=== PATIENT | female | born 1950 | race Hispanic/Latino ===

== ENCOUNTER 2017-07-23 16:39 | Inpatient (IN) | payer MEDICARE ==
[~2017-07-23] VITALS: Ht 160 cm; Wt 71.7 kg
[2017-07-23 17:02] LABS: BASOPHILS % (AUTO) 0.2 % (0.0-5.0); EOSINOPHILS % (AUTO) 0.1 % (0.0-8.0); HEMATOCRIT 32.4 % (36-48); LYMPHOCYTES % (AUTO) 12.8 % (21.0-51.0); MEAN CORPUSCULAR HEMOGLOBIN 31.6 pg (27.0-33.0); MEAN CORPUSCULAR HGB CONC 34.6 g/dL (32.0-36.0); MEAN CORPUSCULAR VOLUME 91.3 fL (79-99); MONOCYTES % (AUTO) 2.2 % (3.0-13.0); NEUTROPHILS % (AUTO) 84.7 % (40.0-77.0); PLATELET COUNT (AUTO) 123 K/uL (130-400); RED BLOOD CELL COUNT(AUTO) 3.56 MIL/uL (4.00-5.50); RED CELL DISTRIBUTION WIDTH 14.6 % (11.0-15.5); WHITE BLOOD COUNT (AUTO) 9.1 K/uL (4.8-10.8)
[2017-07-23 17:10] LABS: CREATININE 2.4 mg/dL (0.5-1.5); POTASSIUM 4.5 mmol/L (3.5-5.1)
[2017-07-23 17:11] LABS: APPEARANCE,URINE Turbid (CLEAR); BILIRUBIN,URINE Moderate (NEGATIVE); COLOR,URINE Dark Yellow (YELLOW); GLUCOSE, URINE (UA) Negative (NEGATIVE); KETONES,URINE Trace mg/dL (NEGATIVE); LEUKOCYTE ESTERASE ,URINE Small (NEGATIVE); NITRATE,URINE Negative (NEGATIVE); OCCULT BLOOD,URINE Negative (NEGATIVE); PROTEIN,URINE POS 1+ (NEGATIVE)
[2017-07-23 17:15] LABS: ALBUMIN 2.2 g/dL (3.5-5.0); BILIRUBIN,TOTAL 1.6 mg/dL (0.2-1.0); TOTAL PROTEIN, SERUM 5.7 g/dL (6.0-8.3)
[2017-07-23 17:18] LABS: BACTERIA,URINE Many /HPF (None Seen); RBC,URINE None Seen /HPF (0-1)
[2017-07-23 17:19] LABS: AMORPHOUS SEDIMENT,UR Moderate /LPF (None Seen); FINE GRANULAR CASTS,URINE 0-2 /LPF (None Seen); RENAL EPITHELIAL CELLS,URINE Few /HPF (None Seen); TRANSITIONAL EPI CELLS,URINE Few /HPF (None Seen)
[2017-07-23] MEDS ORDERED: SODIUM CHLORIDE 0.9% 1000ML 1,000 ML IV ONE ×2 (17:36→18:39)
[2017-07-23] MEDS ORDERED: MORPHINE SULFATE 4 MG/1ML SYG ONE (19:38)
[2017-07-23 23:25] VITALS: BP 94/44
[2017-07-24] MEDS ORDERED: ACETAMINOPHEN 325 MG TAB PO PRN (00:15)
[2017-07-24] MEDS ORDERED: ACETAMINOPHEN 325 MG TAB ONE (00:20)
[2017-07-24 00:24] VITALS: BP 107/53
[2017-07-24] MEDS: SODIUM CHLORIDE 0.9% 1000ML 1,000 ML IV SCH ×2 (00:30→10:30)
[2017-07-24] MEDS ORDERED: ONDANSETRON HCL MDV 20ML 2 MG/ML VIAL IVP PRN (01:15)
[2017-07-24 04:32] VITALS: BP 92/52
[2017-07-24 05:00] LABS: HEMATOCRIT 29.4 % (36-48); MEAN CORPUSCULAR HEMOGLOBIN 31.8 pg (27.0-33.0); PLATELET COUNT (AUTO) 109 K/uL (130-400); RED BLOOD CELL COUNT(AUTO) 3.23 MIL/uL (4.00-5.50); RED CELL DISTRIBUTION WIDTH 15.1 % (11.0-15.5); WHITE BLOOD COUNT (AUTO) 11.1 K/uL (4.8-10.8)
[2017-07-24 05:12] LABS: ALBUMIN 1.7 g/dL (3.5-5.0); BILIRUBIN,TOTAL 1.8 mg/dL (0.2-1.0); CREATININE 2.5 mg/dL (0.5-1.5); POTASSIUM 3.6 mmol/L (3.5-5.1); TOTAL PROTEIN, SERUM 4.6 g/dL (6.0-8.3)
[2017-07-24 05:18] LABS: B-TYPE NATRIURETIC PEPTIDE 217 pg/mL (0-100)
[2017-07-24] MEDS: CEFTRIAXONE SODIUM 1 GM IV SCH ×2 (05:41→08:46)
[2017-07-24 08:00] VITALS: BP 91/46
[2017-07-24] MEDS: ENOXAPARIN SODIUM 40 MG/0.4 ML SYRINGE SQ SCH ×2 (08:36→17:19)
[2017-07-24] MEDS: PANTOPRAZOLE SODIUM 40 MG TABLET.DR PO SCH (08:45)
[2017-07-24 09:59] LABS: INR 1.16 (0.85-1.15); PARTIAL THROMBOPLASTIN TIME 38.3 SEC (26.3-35.5); PROTHROMBIN TIME 12.1 SEC (9.6-11.6)
[2017-07-24 11:00] VITALS: BP 90/40
[2017-07-24] MEDS: ACETAMINOPHEN 325 MG TAB PO PRN (11:07)
[2017-07-24] MEDS: FUROSEMIDE 10 MG/ML 4ML VIAL IV SCH (13:34)
[2017-07-24 13:47] LABS: ABG BASE EXCESS -6.3 mmol/L (-2.0-3.0); ABG OXYGEN SATURATION 95.2 % (95.0-99.0); ABG PCO2 33 mmHg (32-45)
[2017-07-24 14:53] LABS: PROTEIN,URINE RANDOM 132.8 mg/dL (0-11.9)
[2017-07-24 16:00] VITALS: BP 92/46
[2017-07-24] MEDS: HYDROCODONE/ACETAMINOPHEN 5/325 MG TAB PO PRN ×2 (17:15→23:48)
[2017-07-24 20:00] VITALS: BP 90/45
[2017-07-25] VITALS (7 sets, daily range): BP systolic 85–104; BP diastolic 41–50
[2017-07-25] MEDS ORDERED: HALOPERIDOL LACTATE 5 MG/ML VIAL ONE (01:57)
[2017-07-25] MEDS ORDERED: LORAZEPAM 0.5 MG TABLET PO PRN (02:45)
[2017-07-25] MEDS: FUROSEMIDE 10 MG/ML 4ML VIAL IV SCH ×2 (03:35→08:41)
[2017-07-25] MEDS ORDERED: LORAZEPAM 0.5 MG TABLET ONE (04:30)
[2017-07-25 04:33] LABS: ABG BASE EXCESS -7.3 mmol/L (-2.0-3.0); ABG HCO3 15.1 mmol/L (21.0-28.0); ABG PCO2 24 mmHg (32-45)
[2017-07-25 04:35] LABS: ABG BASE EXCESS -7.1 mmol/L (-2.0-3.0); ABG HCO3 15.6 mmol/L (21.0-28.0); ABG PCO2 25 mmHg (32-45)
[2017-07-25 05:52] LABS: HEMATOCRIT 30.1 % (36-48); MEAN CORPUSCULAR HEMOGLOBIN 33.1 pg (27.0-33.0); MEAN CORPUSCULAR HGB CONC 36.9 g/dL (32.0-36.0); MEAN CORPUSCULAR VOLUME 89.8 fL (79-99); PLATELET COUNT (AUTO) 73 K/uL (130-400); RED BLOOD CELL COUNT(AUTO) 3.35 MIL/uL (4.00-5.50); RED CELL DISTRIBUTION WIDTH 15.4 % (11.0-15.5); WHITE BLOOD COUNT (AUTO) 10.8 K/uL (4.8-10.8)
[2017-07-25 05:59] LABS: CREATININE 3.9 mg/dL (0.5-1.5); MAGNESIUM 1.4 mg/dL (1.80-2.40); PHOSPHORUS 3.8 mg/dL (2.5-4.9); POTASSIUM 3.9 mmol/L (3.5-5.1)
[2017-07-25 06:06] LABS: BAND NEUTROPHILS % (MANUAL) 14 % (0-2); LYMPHOCYTES % (MANUAL) 19 % (22-44); SEGMENTED NEUTROPHILS % 67 % (40-70)
[2017-07-25 06:07] LABS: MAN.DIFF COMMENT-IMPRESSION MANUAL DIFFERENTIAL; PLATELET MORPHOLOGY COMMENT DECREASED
[2017-07-25 06:30] LABS: % IRON SATURATION 19.3 % (22-44)
[2017-07-25 08:21] LABS: HEPATITIS A ANTIBODY IGM Negative (Negative); HEPATITIS B CORE IGM Negative (Negative); HEPATITIS Bs ANTIGEN SCREEN P Negative (Negative)
[2017-07-25] MEDS: PANTOPRAZOLE SODIUM 40 MG TABLET.DR PO SCH (08:25)
[2017-07-25] MEDS: HALOPERIDOL LACTATE 5 MG/ML VIAL IV PRN ×2 (08:26→18:10)
[2017-07-25] MEDS: ENOXAPARIN SODIUM 40 MG/0.4 ML SYRINGE SQ SCH (08:26)
[2017-07-25] MEDS ORDERED: LEVOFLOXACIN 500 MG TABLET PO SCH (09:00)
[2017-07-25] MEDS ORDERED: MORPHINE SULFATE 2 MG/ML 1ML SYG IVP PRN (11:00)
[2017-07-25 11:01] LABS: COLLECTION PERIOD,URINE 24 HR; TOTAL VOLUME 24HRS,URINE 650 mL
[2017-07-25 11:02] LABS: TPROTEIN TIMED,URINE 65 mg/dL; TPROTEIN U,24HR CALC 423 mg/24HR (0-165)
[2017-07-25] MEDS ORDERED: LEVOFLOXACIN 250 MG/D5W 50ML 50 ML IV SCH (11:30)
[2017-07-25] MEDS ORDERED: COMPOUND IV MISC 1 EACH IVSOLN MISC PRN (12:00)
[2017-07-25] MEDS ORDERED: MIDODRINE HCL 5 MG TABLET ONE (12:54)
[2017-07-25] MEDS ORDERED: HYDROMORPHONE 1 MG/1 ML AMP ONE (12:55)
[2017-07-25] MEDS: METRONIDAZOLE 500 MG TABLET PO SCH ×2 (13:01→19:00)
[2017-07-25] MEDS: HYDROMORPHONE HCL 0.5 MG/0.5 ML ML IVP PRN ×2 (13:03→23:33)
[2017-07-25] MEDS: MIDODRINE HCL 5 MG TABLET PO SCH ×3 (13:04→23:18)
[2017-07-25] MEDS ORDERED: FUROSEMIDE 10 MG/ML 2ML VIAL IVP SCH (13:30)
[2017-07-25] MEDS: SODIUM BICARBONATE 650 MG TAB PO SCH (21:00)
[2017-07-25] MEDS ORDERED: SODIUM CHLORIDE 0.9% 1000ML 1,000 ML IV SCH (22:45)
[2017-07-25] MEDS ORDERED: SODIUM CHLORIDE 0.9% 1000ML 1,000 ML IV ONE (22:55)
[2017-07-25] MEDS ORDERED: DEXTROSE 50%-WATER 50 ML DISP.SYRIN IV ONE (23:05)
[2017-07-25] MEDS ORDERED: GLUCAGON 1MG KIT 1 MG ML IM PRN (23:30)
[2017-07-26] VITALS (27 sets, daily range): BP systolic 70–185; BP diastolic 33–130
[2017-07-26] MEDS ORDERED: METRONIDAZOLE 500MG/100ML BAG 100 ML ONE
[2017-07-26] MEDS: METRONIDAZOLE 500MG/100ML BAG 100 ML IV SCH ×4 (00:05→21:58)
[2017-07-26 01:34] LABS: APPEARANCE,URINE Cloudy (CLEAR); BILIRUBIN,URINE Negative (NEGATIVE); COLOR,URINE Dark Yellow (YELLOW); GLUCOSE, URINE (UA) Negative (NEGATIVE); KETONES,URINE Negative (NEGATIVE); LEUKOCYTE ESTERASE ,URINE Trace (NEGATIVE); NITRATE,URINE Negative (NEGATIVE); OCCULT BLOOD,URINE Small (NEGATIVE); PROTEIN,URINE POS 1+ (NEGATIVE); UROBILINOGEN,URINE 0.2 mg/dL (0.2-1.0)
[2017-07-26 01:44] LABS: BACTERIA,URINE None Seen /HPF (None Seen); RBC,URINE 0-1 /HPF (0-1); SQUAMOUS EPITHELIAL CELL,UR None Seen /HPF (0-2); WBC,URINE 0-1 /HPF (0-1)
[2017-07-26 01:45] LABS: AMORPHOUS SEDIMENT,UR Few /LPF (None Seen)
[2017-07-26] MEDS: DEXTROSE 50%-WATER 50 ML DISP.SYRIN IV PRN ×3 (02:23→13:24)
[2017-07-26] MEDS: HALOPERIDOL LACTATE 5 MG/ML VIAL IV PRN (02:41)
[2017-07-26 03:54] LABS: HEMATOCRIT 29.5 % (36-48); MEAN CORPUSCULAR HEMOGLOBIN 31.4 pg (27.0-33.0); MEAN CORPUSCULAR HGB CONC 34.9 g/dL (32.0-36.0); PLATELET COUNT (AUTO) 47 K/uL (130-400); RED BLOOD CELL COUNT(AUTO) 3.28 MIL/uL (4.00-5.50); WHITE BLOOD COUNT (AUTO) 11.1 K/uL (4.8-10.8)
[2017-07-26 04:08] LABS: ALBUMIN 1.6 g/dL (3.5-5.0); BILIRUBIN,TOTAL 3.9 mg/dL (0.2-1.0); CREATININE 4.9 mg/dL (0.5-1.5); POTASSIUM 4.2 mmol/L (3.5-5.1); TOTAL PROTEIN, SERUM 4.4 g/dL (6.0-8.3)
[2017-07-26 04:12] LABS: BAND NEUTROPHILS % (MANUAL) 6 % (0-2); LYMPHOCYTES % (MANUAL) 12 % (22-44); MAN.DIFF COMMENT-IMPRESSION MANUAL DIFFERENTIAL; SEGMENTED NEUTROPHILS % 82 % (40-70)
[2017-07-26 04:13] LABS: PLATELET MORPHOLOGY COMMENT MARKED DEC
[2017-07-26] MEDS: HYDROMORPHONE HCL 0.5 MG/0.5 ML ML IVP PRN (05:02)
[2017-07-26] MEDS: DEXTROSE 10%-WATER 1,000 ML IV SCH (07:15)
[2017-07-26] MEDS: MIDODRINE HCL 5 MG TABLET PO SCH ×4 (09:00→21:00)
[2017-07-26] MEDS: SODIUM BICARBONATE 650 MG TAB PO SCH ×2 (09:00→21:00)
[2017-07-26] MEDS: ENOXAPARIN SODIUM 40 MG/0.4 ML SYRINGE SQ SCH (09:00)
[2017-07-26] MEDS ORDERED: HYDROCORTISONE SOD SUCCINATE 100 MG/2 ML VIAL IV SCH (09:15)
[2017-07-26] MEDS ORDERED: SODIUM BICARB 50MEQ 50ML VIAL ONE (09:27)
[2017-07-26 09:32] LABS: ABG BASE EXCESS -10.5 mmol/L (-2.0-3.0); ABG HCO3 13.9 mmol/L (21.0-28.0); ABG OXYGEN SATURATION 97.1 % (95.0-99.0); ABG PCO2 28 mmHg (32-45)
[2017-07-26] MEDS ORDERED: PHARMACY COMMUNICATION MISC SCH (10:00)
[2017-07-26] MEDS ORDERED: SODIUM BICARB 8.4% 50ML SYRING 150 MEQ in DEXTROSE 5%-WATER 1,000 ML IVP SCH (10:30)
[2017-07-26] MEDS ORDERED: CEFEPIME HCL 1 GM VIAL IVP SCH ×2 (10:30→12:45)
[2017-07-26] MEDS ORDERED: CEFEPIME 1GM+NS 50ML 50 ML IV SCH ×2 (11:00→14:00)
[2017-07-26] MEDS ORDERED: METH4TAB15 PO (11:44)
[2017-07-26] MEDS ORDERED: LIOT50TA3 PO (11:44)
[2017-07-26] MEDS ORDERED: RANI150T7 PO (11:44)
[2017-07-26] MEDS ORDERED: LEVO75TA10 PO (11:44)
[2017-07-26] MEDS ORDERED: [UNRECOGNIZED DRUG - OTHER] PO (11:44)
[2017-07-26] MEDS ORDERED: [UNRECOGNIZED DRUG - CODE] PO (11:44)
[2017-07-26] MEDS ORDERED: IBUP-2070 PO (11:44)
[2017-07-26] MEDS ORDERED: [UNRECOGNIZED DRUG - OTHER] (11:44)
[2017-07-26] MEDS ORDERED: CEFD300C3 PO (11:44)
[2017-07-26] MEDS ORDERED: MELOXICAM PO (11:44)
[2017-07-26] MEDS ORDERED: NOREPINEPHRINE 4MG/NS 250ML 250 ML IV SCH (12:30)
[2017-07-26] MEDS: MAGNESIUM 2GM PREMIX 50ML 50 ML IV PRN (13:02)
[2017-07-26] MEDS: IRON SUCROSE COMPLEX 100 MG in SODIUM CHLORIDE 0.9% 50 ML IV SCH (13:34)
[2017-07-26] MEDS: PANTOPRAZOLE 40 MG/VIAL IVP SCH (13:34)
[2017-07-26] MEDS ORDERED: MEROPENEM 1GM IVPB PREMIXED 1 GM IV SCH (17:00)
[2017-07-26] MEDS: DOXYCYCLINE 100MG+NS 250ML 250 ML IV SCH (17:20)
[2017-07-26] MEDS: FLUCONAZOLE 200 MG/NS 100 ML 100 ML IV SCH (17:22)
[2017-07-26] MEDS: MEROPENEM 1 GM VIAL IVP SCH (19:41)
[2017-07-27] VITALS (31 sets, daily range): BP systolic 88–165; BP diastolic 31–103
[2017-07-27] MEDS: DOXYCYCLINE 100MG+NS 250ML 250 ML IV SCH ×2 (03:38→15:45)
[2017-07-27 03:58] LABS: HEMATOCRIT 27.9 % (36-48); MEAN CORPUSCULAR HEMOGLOBIN 32.8 pg (27.0-33.0); MEAN CORPUSCULAR VOLUME 88.5 fL (79-99); PLATELET COUNT (AUTO) 38 K/uL (130-400); RED BLOOD CELL COUNT(AUTO) 3.15 MIL/uL (4.00-5.50); RED CELL DISTRIBUTION WIDTH 15.3 % (11.0-15.5); WHITE BLOOD COUNT (AUTO) 14.3 K/uL (4.8-10.8)
[2017-07-27 04:16] LABS: CREATININE 5.6 mg/dL (0.5-1.5); MAGNESIUM 2.2 mg/dL (1.80-2.40); POTASSIUM 4.1 mmol/L (3.5-5.1)
[2017-07-27] MEDS: LORAZEPAM 2 MG/ML 1 ML VIAL IVP PRN ×2 (04:40→20:13)
[2017-07-27 05:49] LABS: ABG BASE EXCESS -1.9 mmol/L (-2.0-3.0); ABG HCO3 22.1 mmol/L (21.0-28.0); ABG OXYGEN SATURATION 99.2 % (95.0-99.0); ABG PCO2 36 mmHg (32-45)
[2017-07-27] MEDS: METRONIDAZOLE 500MG/100ML BAG 100 ML IV SCH ×3 (05:59→21:04)
[2017-07-27] MEDS: DEXTROSE 10%-WATER 1,000 ML IV SCH (06:00)
[2017-07-27] MEDS: SODIUM BICARBONATE 650 MG TAB PO SCH ×2 (08:11→21:03)
[2017-07-27] MEDS: MIDODRINE HCL 5 MG TABLET PO SCH ×3 (09:00→21:04)
[2017-07-27] MEDS ORDERED: CEFEPIME HCL 1 GM VIAL IVP SCH (09:00)
[2017-07-27] MEDS: PANTOPRAZOLE 40 MG/VIAL IVP SCH ×2 (09:00→14:34)
[2017-07-27] MEDS ORDERED: CEFEPIME HCL 1 GM VIAL IVP NR (09:00)
[2017-07-27] MEDS ORDERED: LIDOCAINE HCL 2% 20ML ONE (09:33)
[2017-07-27] MEDS ORDERED: HEPARIN SODIUM 5000UNIT/ML 1ML VIAL ONE (10:15)
[2017-07-27] MEDS ORDERED: SODIUM CHLORIDE 0.9% 1000ML 2,000 ML IV ONE (10:34)
[2017-07-27] MEDS ORDERED: LORAZEPAM 2 MG/ML 1 ML VIAL IVP SCH (11:02)
[2017-07-27] MEDS ORDERED: HEPARIN SODIUM 5000UNIT/ML 1ML VIAL IJ PRN ×2 (11:15)
[2017-07-27] MEDS ORDERED: 0.9% SODIUM CHLORIDE 250 ML IV BAG IV PRN (11:15)
[2017-07-27 14:16] LABS: PLATELET COUNT (AUTO) 29 K/uL (130-400)
[2017-07-27 14:39] LABS: FIBRINOGEN 165 mg/dL (180-350); INR 1.33 (0.85-1.15); PROTHROMBIN TIME 13.9 SEC (9.6-11.6)
[2017-07-27 15:12] LABS: D-DIMER > 10000 ng/mL (0-500); PARTIAL THROMBOPLASTIN TIME > 120.0 SEC (26.3-35.5)
[2017-07-27 16:06] LABS: PLATELET COUNT (AUTO) 32 K/uL (130-400)
[2017-07-27 16:25] LABS: FIBRINOGEN 157 mg/dL (180-350); INR 1.23 (0.85-1.15); PROTHROMBIN TIME 12.9 SEC (9.6-11.6)
[2017-07-27] MEDS: IRON SUCROSE COMPLEX 100 MG in SODIUM CHLORIDE 0.9% 50 ML IV SCH (16:35)
[2017-07-27 16:56] LABS: D-DIMER > 10000 ng/mL (0-500); PARTIAL THROMBOPLASTIN TIME > 120.0 SEC (26.3-35.5)
[2017-07-27 17:16] LABS: RETICULOCYTE % (AUTO) 0.19 % (0.42-2.23)
[2017-07-27] MEDS: FLUCONAZOLE 200 MG/NS 100 ML 100 ML IV SCH (18:09)
[2017-07-27] MEDS: MEROPENEM 1 GM VIAL IVP SCH (18:10)
[2017-07-27] MEDS: DEXTROSE 50%-WATER 50 ML DISP.SYRIN IV PRN (18:58)
[2017-07-27] MEDS: DEXTROSE 5 %-0.45 % NACL 1,000 ML IV SCH (19:46)
[2017-07-27 19:55] LABS: BAND NEUTROPHILS % (MANUAL) 9 % (0-2); LYMPHOCYTES % (MANUAL) 12 % (22-44); MAN.DIFF COMMENT-IMPRESSION MANUAL DIFFERENTIAL; MONOCYTES % (MANUAL) 5 % (2-9); SEGMENTED NEUTROPHILS % 74 % (40-70)
[2017-07-27 19:56] LABS: PLATELET MORPHOLOGY COMMENT MARKED DECREASED
[2017-07-27] MEDS ORDERED: METOPROLOL TARTRATE 1 MG/ML 5ML VIAL IV ONE (20:07)
[2017-07-27] MEDS: METOPROLOL TARTRATE 1 MG/ML 5ML VIAL IV PRN ×2 (20:44→21:48)
[2017-07-27] MEDS ORDERED: METOPROLOL TARTRATE 1 MG/ML 5ML VIAL IV PRN (20:45)
[2017-07-27 20:58] LABS: MAGNESIUM 1.9 mg/dL (1.80-2.40); POTASSIUM 3.6 mmol/L (3.5-5.1)
[2017-07-27] MEDS: HOME MEDICATION 1 EACH PO SCH (21:00)
[2017-07-27] MEDS: MAGNESIUM 2GM PREMIX 50ML 50 ML IV PRN (21:50)
[2017-07-28] VITALS (25 sets, daily range): BP systolic 93–165; BP diastolic 48–89
[2017-07-28] MEDS: DOXYCYCLINE 100MG+NS 250ML 250 ML IV SCH ×2 (03:11→15:18)
[2017-07-28] MEDS: METOPROLOL TARTRATE 1 MG/ML 5ML VIAL IV PRN (04:42)
[2017-07-28 04:44] LABS: HEMATOCRIT 27.6 % (36-48); MEAN CORPUSCULAR HGB CONC 35.2 g/dL (32.0-36.0); MEAN CORPUSCULAR VOLUME 88.3 fL (79-99); PLATELET COUNT (AUTO) 33 K/uL (130-400); RED BLOOD CELL COUNT(AUTO) 3.13 MIL/uL (4.00-5.50); RED CELL DISTRIBUTION WIDTH 15.1 % (11.0-15.5); WHITE BLOOD COUNT (AUTO) 11.8 K/uL (4.8-10.8)
[2017-07-28 05:00] LABS: INR 1.11 (0.85-1.15); PARTIAL THROMBOPLASTIN TIME 39.4 SEC (26.3-35.5); PROTHROMBIN TIME 11.6 SEC (9.6-11.6)
[2017-07-28] MEDS: METRONIDAZOLE 500MG/100ML BAG 100 ML IV SCH ×3 (05:05→21:12)
[2017-07-28 05:28] LABS: ALBUMIN 1.6 g/dL (3.5-5.0); BILIRUBIN,TOTAL 6.7 mg/dL (0.2-1.0); CREATININE 4.2 mg/dL (0.5-1.5); MAGNESIUM 2.6 mg/dL (1.80-2.40); PHOSPHORUS 3.9 mg/dL (2.5-4.9); POTASSIUM 3.5 mmol/L (3.5-5.1); THYROID STIMULATING HORMONE 0.01 uIU/mL (0.36-3.74); TOTAL PROTEIN, SERUM 4.5 g/dL (6.0-8.3)
[2017-07-28] MEDS: LEVOTHYROXINE 75 MCG TABLET PO SCH (05:54)
[2017-07-28] MEDS: DEXTROSE 10%-WATER 1,000 ML IV SCH (06:15)
[2017-07-28 06:45] LABS: ABG BASE EXCESS -0.8 mmol/L (-2.0-3.0); ABG HCO3 22.3 mmol/L (21.0-28.0); ABG OXYGEN SATURATION 94.5 % (95.0-99.0); ABG PCO2 33 mmHg (32-45)
[2017-07-28] MEDS ORDERED: 0.9% SODIUM CHLORIDE 250 ML IV BAG IV PRN (07:45)
[2017-07-28] MEDS ORDERED: ALBUMIN (HUMAN) 25% 100 ML IV PRN (07:45)
[2017-07-28] MEDS ORDERED: SODIUM CHLORIDE 0.9% 1000ML 1,000 ML IV PRN (07:45)
[2017-07-28] MEDS ORDERED: HEPARIN SODIUM 5000UNIT/ML 1ML VIAL IJ PRN (07:45)
[2017-07-28] MEDS: HOME MEDICATION 1 EACH PO SCH ×3 (09:00→20:20)
[2017-07-28] MEDS: SODIUM CHLORIDE 0.9% 1000ML 1,000 ML IV PRN (09:02)
[2017-07-28] MEDS: HEPARIN SODIUM 5000UNIT/ML 1ML VIAL IJ PRN (09:03)
[2017-07-28] MEDS: SODIUM BICARBONATE 650 MG TAB PO SCH ×2 (09:50→20:20)
[2017-07-28] MEDS: PANTOPRAZOLE 40 MG/VIAL IVP SCH (09:50)
[2017-07-28] MEDS: MIDODRINE HCL 5 MG TABLET PO SCH ×3 (09:51→20:15)
[2017-07-28] MEDS: IRON SUCROSE COMPLEX 100 MG in SODIUM CHLORIDE 0.9% 50 ML IV SCH (11:05)
[2017-07-28] MEDS ORDERED: HEPARIN SODIUM/PF 100UNIT/ML 5ML SYRINGE IV SCH (15:00)
[2017-07-28] MEDS: FLUCONAZOLE 200 MG/NS 100 ML 100 ML IV SCH (17:10)
[2017-07-28] MEDS: DEXTROSE 5 %-0.45 % NACL 1,000 ML IV SCH (17:10)
[2017-07-28] MEDS: MEROPENEM 1 GM VIAL IVP SCH (18:12)
[2017-07-28] MEDS: LORAZEPAM 2 MG/ML 1 ML VIAL IVP PRN (21:18)
[2017-07-29] VITALS (24 sets, daily range): BP systolic 112–166; BP diastolic 53–84
[2017-07-29] MEDS: DOXYCYCLINE 100MG+NS 250ML 250 ML IV SCH ×2 (03:17→15:48)
[2017-07-29 03:58] LABS: ABG BASE EXCESS -1.5 mmol/L (-2.0-3.0); ABG HCO3 23.4 mmol/L (21.0-28.0); ABG PCO2 40 mmHg (32-45)
[2017-07-29] MEDS: HYDROCODONE/ACETAMINOPHEN 5/325 MG TAB PO PRN (04:22)
[2017-07-29 04:59] LABS: HEMATOCRIT 25.6 % (36-48); MEAN CORPUSCULAR HEMOGLOBIN 31.4 pg (27.0-33.0); MEAN CORPUSCULAR HGB CONC 35.2 g/dL (32.0-36.0); MEAN CORPUSCULAR VOLUME 89.3 fL (79-99); PLATELET COUNT (AUTO) 48 K/uL (130-400); RED BLOOD CELL COUNT(AUTO) 2.86 MIL/uL (4.00-5.50); RED CELL DISTRIBUTION WIDTH 15.9 % (11.0-15.5); WHITE BLOOD COUNT (AUTO) 11.1 K/uL (4.8-10.8)
[2017-07-29] MEDS: METRONIDAZOLE 500MG/100ML BAG 100 ML IV SCH ×3 (05:11→20:54)
[2017-07-29 05:30] LABS: ALBUMIN 1.6 g/dL (3.5-5.0); BILIRUBIN,TOTAL 6.8 mg/dL (0.2-1.0); CREATININE 3.7 mg/dL (0.5-1.5); POTASSIUM 3.7 mmol/L (3.5-5.1); TOTAL PROTEIN, SERUM 4.6 g/dL (6.0-8.3)
[2017-07-29] MEDS: LEVOTHYROXINE 75 MCG TABLET PO SCH (05:31)
[2017-07-29] MEDS: DEXTROSE 10%-WATER 1,000 ML IV SCH (05:32)
[2017-07-29] MEDS: HOME MEDICATION 1 EACH PO SCH ×3 (09:00→20:51)
[2017-07-29] MEDS: SODIUM CHLORIDE 0.9% 1000ML 1,000 ML IV PRN (09:08)
[2017-07-29] MEDS: HEPARIN SODIUM 5000UNIT/ML 1ML VIAL IJ PRN (09:08)
[2017-07-29] MEDS ORDERED: PANTOPRAZOLE SODIUM 40 MG TABLET.DR PO SCH (09:09)
[2017-07-29] MEDS: SODIUM BICARBONATE 650 MG TAB PO SCH ×2 (10:26→20:53)
[2017-07-29] MEDS: IRON SUCROSE COMPLEX 100 MG in SODIUM CHLORIDE 0.9% 50 ML IV SCH (10:26)
[2017-07-29] MEDS ORDERED: FAMOTIDINE 20MG TAB 20 MG TAB PO SCH (11:35)
[2017-07-29] MEDS: DEXTROSE 5 %-0.45 % NACL 1,000 ML IV SCH (15:48)
[2017-07-29] MEDS: FLUCONAZOLE 200 MG/NS 100 ML 100 ML IV SCH (16:51)
[2017-07-29] MEDS: MEROPENEM 1 GM VIAL IVP SCH (18:10)
[2017-07-30] VITALS (18 sets, daily range): BP systolic 135–160; BP diastolic 58–83
[2017-07-30] MEDS: DOXYCYCLINE 100MG+NS 250ML 250 ML IV SCH ×2 (03:35→15:59)
[2017-07-30] MEDS: DEXTROSE 10%-WATER 1,000 ML IV SCH (05:28)
[2017-07-30] MEDS: METRONIDAZOLE 500MG/100ML BAG 100 ML IV SCH ×3 (05:30→21:00)
[2017-07-30 07:55] LABS: HEMATOCRIT 24.8 % (36-48); MEAN CORPUSCULAR HEMOGLOBIN 31.4 pg (27.0-33.0); MEAN CORPUSCULAR HGB CONC 35.6 g/dL (32.0-36.0); MEAN CORPUSCULAR VOLUME 88.2 fL (79-99); NUCLEATED RED BLOOD CELLS 0.1 % (0.0-0.19); PLATELET COUNT (AUTO) 79 K/uL (130-400); RED BLOOD CELL COUNT(AUTO) 2.81 MIL/uL (4.00-5.50); RED CELL DISTRIBUTION WIDTH 15.7 % (11.0-15.5); WHITE BLOOD COUNT (AUTO) 10.7 K/uL (4.8-10.8)
[2017-07-30] MEDS: IRON SUCROSE COMPLEX 100 MG in SODIUM CHLORIDE 0.9% 50 ML IV SCH (08:24)
[2017-07-30] MEDS: SODIUM BICARBONATE 650 MG TAB PO SCH ×2 (08:24→20:54)
[2017-07-30 08:25] LABS: ALBUMIN 1.6 g/dL (3.5-5.0); BILIRUBIN,TOTAL 3.6 mg/dL (0.2-1.0); CREATININE 3.5 mg/dL (0.5-1.5); POTASSIUM 3.7 mmol/L (3.5-5.1); TOTAL PROTEIN, SERUM 5.1 g/dL (6.0-8.3)
[2017-07-30] MEDS: FAMOTIDINE 20MG TAB 20 MG TAB PO SCH (08:25)
[2017-07-30] MEDS: HOME MEDICATION 1 EACH PO SCH ×3 (08:25→20:54)
[2017-07-30] MEDS: FLUCONAZOLE 200 MG/NS 100 ML 100 ML IV SCH (15:59)
[2017-07-30] MEDS: MEROPENEM 1 GM VIAL IVP SCH (18:14)
[2017-07-30] MEDS: DEXTROSE 5 %-0.45 % NACL 1,000 ML IV SCH (18:16)
[2017-07-31] MEDS: DOXYCYCLINE 100MG+NS 250ML 250 ML IV SCH ×2 (03:48→17:22)
[2017-07-31] MEDS: DEXTROSE 5 %-0.45 % NACL 1,000 ML IV SCH (03:48)
[2017-07-31 04:00] VITALS: BP 135/63
[2017-07-31 04:39] LABS: BASOPHILS % (AUTO) 0.5 % (0.0-5.0); EOSINOPHILS % (AUTO) 0.8 % (0.0-8.0); HEMATOCRIT 21.5 % (36-48); LYMPHOCYTES % (AUTO) 26.9 % (21.0-51.0); MEAN CORPUSCULAR HEMOGLOBIN 32.9 pg (27.0-33.0); MEAN CORPUSCULAR HGB CONC 37.3 g/dL (32.0-36.0); MEAN CORPUSCULAR VOLUME 88.3 fL (79-99); MONOCYTES % (AUTO) 9.1 % (3.0-13.0); NEUTROPHILS % (AUTO) 62.7 % (40.0-77.0); NUCLEATED RED BLOOD CELLS 0.1 % (0.0-0.19); PLATELET COUNT (AUTO) 114 K/uL (130-400); RED BLOOD CELL COUNT(AUTO) 2.43 MIL/uL (4.00-5.50); RED CELL DISTRIBUTION WIDTH 15.1 % (11.0-15.5); WHITE BLOOD COUNT (AUTO) 8.7 K/uL (4.8-10.8)
[2017-07-31 04:47] LABS: POTASSIUM 3.3 mmol/L (3.5-5.1)
[2017-07-31] MEDS: DEXTROSE 10%-WATER 1,000 ML IV SCH (05:11)
[2017-07-31] MEDS: METRONIDAZOLE 500MG/100ML BAG 100 ML IV SCH ×3 (05:11→20:58)
[2017-07-31 07:00] VITALS: BP 150/71
[2017-07-31] MEDS: HOME MEDICATION 1 EACH PO SCH ×3 (09:00→20:48)
[2017-07-31] MEDS: FAMOTIDINE 20MG TAB 20 MG TAB PO SCH (10:30)
[2017-07-31] MEDS: SODIUM BICARBONATE 650 MG TAB PO SCH ×2 (10:30→20:58)
[2017-07-31] MEDS ORDERED: COMPOUND IV REFRIGERATED 1 EACH MISC ONE (10:35)
[2017-07-31] MEDS: IRON SUCROSE COMPLEX 100 MG in SODIUM CHLORIDE 0.9% 50 ML IV SCH (10:40)
[2017-07-31 11:00] VITALS: BP 158/70
[2017-07-31 16:00] VITALS: BP 151/71
[2017-07-31] MEDS: MEROPENEM 1 GM VIAL IVP SCH (17:19)
[2017-07-31] MEDS: FLUCONAZOLE 200 MG/NS 100 ML 100 ML IV SCH (18:26)
[2017-07-31 19:40] VITALS: BP 149/71
[2017-08-01] VITALS (7 sets, daily range): BP systolic 140–177; BP diastolic 61–83
[2017-08-01] MEDS: DEXTROSE 5 %-0.45 % NACL 1,000 ML IV SCH (01:58)
[2017-08-01] MEDS: DOXYCYCLINE 100MG+NS 250ML 250 ML IV SCH ×2 (03:47→17:48)
[2017-08-01] MEDS: METRONIDAZOLE 500MG/100ML BAG 100 ML IV SCH ×3 (05:56→21:58)
[2017-08-01] MEDS: DEXTROSE 10%-WATER 1,000 ML IV SCH (07:15)
[2017-08-01] MEDS: HOME MEDICATION 1 EACH PO SCH ×3 (07:21→21:00)
[2017-08-01] MEDS: FAMOTIDINE 20MG TAB 20 MG TAB PO SCH (09:27)
[2017-08-01] MEDS: SODIUM BICARBONATE 650 MG TAB PO SCH ×2 (09:27→20:40)
[2017-08-01] MEDS: IRON SUCROSE COMPLEX 100 MG in SODIUM CHLORIDE 0.9% 50 ML IV SCH (09:36)
[2017-08-01] MEDS: FLUCONAZOLE 200 MG/NS 100 ML 100 ML IV SCH (15:55)
[2017-08-01] MEDS: MEROPENEM 1 GM VIAL IVP SCH (17:16)
[2017-08-02] MEDS: DOXYCYCLINE 100MG+NS 250ML 250 ML IV SCH ×2 (03:58→15:43)
[2017-08-02 04:00] VITALS: BP 151/71
[2017-08-02] MEDS: DEXTROSE 10%-WATER 1,000 ML IV SCH (07:15)
[2017-08-02 07:45] VITALS: BP 147/84
[2017-08-02] MEDS: SODIUM BICARBONATE 650 MG TAB PO SCH (09:00)
[2017-08-02] MEDS: HOME MEDICATION 1 EACH PO SCH ×3 (09:00→21:00)
[2017-08-02] MEDS: IRON SUCROSE COMPLEX 100 MG in SODIUM CHLORIDE 0.9% 50 ML IV SCH (09:00)
[2017-08-02] MEDS: FAMOTIDINE 20MG TAB 20 MG TAB PO SCH (09:00)
[2017-08-02] MEDS: HEPARIN SODIUM 5000UNIT/ML 1ML VIAL IJ PRN (09:40)
[2017-08-02 11:59] VITALS: BP 126/60
[2017-08-02] MEDS: METRONIDAZOLE 500MG/100ML BAG 100 ML IV SCH ×2 (13:31→21:51)
[2017-08-02 14:54] LABS: CREATININE 3.2 mg/dL (0.5-1.5); POTASSIUM 3.1 mmol/L (3.5-5.1)
[2017-08-02 15:07] LABS: ALBUMIN 1.9 g/dL (3.5-5.0); BILIRUBIN,DIRECT 1.5 mg/dL (0.0-0.3); BILIRUBIN,TOTAL 1.9 mg/dL (0.2-1.0); TOTAL PROTEIN, SERUM 6.1 g/dL (6.0-8.3)
[2017-08-02 15:34] LABS: ROCKY MT SPOTTED FEVER IGG <1:64 (Neg:<1:64)
[2017-08-02 16:00] VITALS: BP 148/76
[2017-08-02] MEDS: HYDROCODONE/ACETAMINOPHEN 5/325 MG TAB PO PRN (16:24)
[2017-08-02] MEDS: FLUCONAZOLE 200 MG/NS 100 ML 100 ML IV SCH (17:35)
[2017-08-02] MEDS ORDERED: POTASSIUM CHLORIDE 10% ELIXIR 20 MEQ/15 ML UDCUP PO PRN (18:00)
[2017-08-02] MEDS ORDERED: LIDOCAINE HCL-MPF 1% 2ML VIAL IVP PRN (18:00)
[2017-08-02] MEDS: MEROPENEM 1 GM VIAL IVP SCH (18:10)
[2017-08-02 20:13] VITALS: BP 158/75
[2017-08-02 23:45] VITALS: BP 150/72
[2017-08-03] MEDS: HYDROCODONE/ACETAMINOPHEN 5/325 MG TAB PO PRN ×2 (00:48→18:25)
[2017-08-03] MEDS: POTASSIUM CHLORIDE 20MEQ/100ML 100 ML IV PRN ×2 (02:26→05:03)
[2017-08-03] MEDS: DOXYCYCLINE 100MG+NS 250ML 250 ML IV SCH ×2 (03:54→18:06)
[2017-08-03 04:06] LABS: MEAN CORPUSCULAR HEMOGLOBIN 31.1 pg (27.0-33.0); MEAN CORPUSCULAR HGB CONC 35.1 g/dL (32.0-36.0); MEAN CORPUSCULAR VOLUME 88.5 fL (79-99); PLATELET COUNT (AUTO) 194 K/uL (130-400); RED CELL DISTRIBUTION WIDTH 14.4 % (11.0-15.5); WHITE BLOOD COUNT (AUTO) 6.7 K/uL (4.8-10.8)
[2017-08-03 04:15] VITALS: BP 145/65
[2017-08-03 04:24] LABS: HEMATOCRIT 20.3 % (36-48)
[2017-08-03 04:29] LABS: ALBUMIN 1.7 g/dL (3.5-5.0); BILIRUBIN,TOTAL 1.5 mg/dL (0.2-1.0); CREATININE 2.9 mg/dL (0.5-1.5); PHOSPHORUS 4.9 mg/dL (2.5-4.9); POTASSIUM 3.1 mmol/L (3.5-5.1); TOTAL PROTEIN, SERUM 5.4 g/dL (6.0-8.3)
[2017-08-03 04:42] LABS: BAND NEUTROPHILS % (MANUAL) 3 % (0-2); BASOPHILS % (MANUAL) 2 % (0-2); LYMPHOCYTES % (MANUAL) 22 % (22-44); MAN.DIFF COMMENT-IMPRESSION MANUAL DIFFERENTIAL; MONOCYTES % (MANUAL) 3 % (2-9); PLATELET MORPHOLOGY COMMENT ADEQUATE; SEGMENTED NEUTROPHILS % 70 % (40-70)
[2017-08-03] MEDS: METRONIDAZOLE 500MG/100ML BAG 100 ML IV SCH ×3 (05:55→21:17)
[2017-08-03] MEDS: DEXTROSE 10%-WATER 1,000 ML IV SCH (07:15)
[2017-08-03] MEDS: HOME MEDICATION 1 EACH PO SCH ×3 (09:00→20:43)
[2017-08-03 09:26] VITALS: BP 162/79
[2017-08-03] MEDS: SODIUM BICARBONATE 650 MG TAB PO SCH ×2 (09:50→20:43)
[2017-08-03] MEDS ORDERED: ONDANSETRON HCL 4 MG/2 ML VIAL ONE (10:05)
[2017-08-03] MEDS: IRON SUCROSE COMPLEX 100 MG in SODIUM CHLORIDE 0.9% 50 ML IV SCH (10:09)
[2017-08-03] MEDS: FAMOTIDINE 20MG TAB 20 MG TAB PO SCH (10:10)
[2017-08-03 12:00] VITALS: BP 158/75
[2017-08-03] MEDS ORDERED: SODIUM CHLORIDE 0.9% 500ML 500 ML IV ONE (14:47)
[2017-08-03] MEDS: FLUCONAZOLE 200 MG/NS 100 ML 100 ML IV SCH (17:44)
[2017-08-03] MEDS: MEROPENEM 1 GM VIAL IVP SCH (18:07)
[2017-08-03 20:22] VITALS: BP 175/88
[2017-08-03] MEDS ORDERED: HYDRALAZINE HCL 20 MG/ML VIAL ONE (21:15)
[2017-08-04] VITALS (8 sets, daily range): BP systolic 119–177; BP diastolic 59–84
[2017-08-04] MEDS: DOXYCYCLINE 100MG+NS 250ML 250 ML IV SCH ×2 (03:09→17:00)
[2017-08-04] MEDS: METRONIDAZOLE 500MG/100ML BAG 100 ML IV SCH ×3 (05:18→21:47)
[2017-08-04 05:22] LABS: INR 1.01 (0.85-1.15); PROTHROMBIN TIME 10.6 SEC (9.6-11.6)
[2017-08-04 05:28] LABS: HEMATOCRIT 24.3 % (36-48); MEAN CORPUSCULAR HEMOGLOBIN 31.9 pg (27.0-33.0); MEAN CORPUSCULAR HGB CONC 35.9 g/dL (32.0-36.0); MEAN CORPUSCULAR VOLUME 88.8 fL (79-99); PLATELET COUNT (AUTO) 281 K/uL (130-400); RED BLOOD CELL COUNT(AUTO) 2.74 MIL/uL (4.00-5.50); RED CELL DISTRIBUTION WIDTH 15.4 % (11.0-15.5); WHITE BLOOD COUNT (AUTO) 5.9 K/uL (4.8-10.8)
[2017-08-04 05:42] LABS: ALBUMIN 1.8 g/dL (3.5-5.0); BILIRUBIN,DIRECT 0.9 mg/dL (0.0-0.3); BILIRUBIN,TOTAL 1.5 mg/dL (0.2-1.0); CREATININE 2.3 mg/dL (0.5-1.5); TOTAL PROTEIN, SERUM 5.6 g/dL (6.0-8.3)
[2017-08-04 05:45] LABS: POTASSIUM 2.9 mmol/L (3.5-5.1)
[2017-08-04 06:01] LABS: BAND NEUTROPHILS % (MANUAL) 3 % (0-2); BASOPHILS % (MANUAL) 1 % (0-2); EOSINOPHILS % (MANUAL) 3 % (1-6); LYMPHOCYTES % (MANUAL) 43 % (22-44); MAN.DIFF COMMENT-IMPRESSION MANUAL DIFFERENTIAL; MONOCYTES % (MANUAL) 10 % (2-9); SEGMENTED NEUTROPHILS % 40 % (40-70)
[2017-08-04] MEDS: DEXTROSE 10%-WATER 1,000 ML IV SCH (07:15)
[2017-08-04] MEDS: FAMOTIDINE 20MG TAB 20 MG TAB PO SCH (09:00)
[2017-08-04] MEDS: SODIUM BICARBONATE 650 MG TAB PO SCH ×2 (09:00→21:47)
[2017-08-04] MEDS: HOME MEDICATION 1 EACH PO SCH ×3 (09:00→21:00)
[2017-08-04] MEDS: IRON SUCROSE COMPLEX 100 MG in SODIUM CHLORIDE 0.9% 50 ML IV SCH (09:00)
[2017-08-04] MEDS: POTASSIUM CHLORIDE 20MEQ/100ML 100 ML IV PRN (17:00)
[2017-08-04] MEDS: MEROPENEM 1 GM VIAL IVP SCH (18:17)
[2017-08-04] MEDS: FLUCONAZOLE 200 MG/NS 100 ML 100 ML IV SCH (18:17)
[2017-08-04] MEDS: HYDROCODONE/ACETAMINOPHEN 5/325 MG TAB PO PRN (18:34)
[2017-08-04] MEDS: HYDRALAZINE HCL 20 MG/ML VIAL IV PRN (18:34)
[2017-08-04] MEDS ORDERED: SODIUM CHLORIDE 0.9% 500ML 500 ML IV ONE (21:30)
[2017-08-05 03:00] VITALS: BP 162/75
[2017-08-05] MEDS: DOXYCYCLINE 100MG+NS 250ML 250 ML IV SCH ×2 (04:01→16:29)
[2017-08-05 04:21] LABS: HEMATOCRIT 24.5 % (36-48); MEAN CORPUSCULAR HEMOGLOBIN 30.9 pg (27.0-33.0); MEAN CORPUSCULAR HGB CONC 35.4 g/dL (32.0-36.0); MEAN CORPUSCULAR VOLUME 87.3 fL (79-99); NUCLEATED RED BLOOD CELLS 0.1 % (0.0-0.19); PLATELET COUNT (AUTO) 328 K/uL (130-400); RED BLOOD CELL COUNT(AUTO) 2.81 MIL/uL (4.00-5.50); RED CELL DISTRIBUTION WIDTH 15.3 % (11.0-15.5); WHITE BLOOD COUNT (AUTO) 5.7 K/uL (4.8-10.8)
[2017-08-05 04:27] LABS: CREATININE 1.7 mg/dL (0.5-1.5)
[2017-08-05] MEDS: POTASSIUM CHLORIDE 20MEQ/100ML 100 ML IV PRN ×2 (04:39→06:14)
[2017-08-05] MEDS: METRONIDAZOLE 500MG/100ML BAG 100 ML IV SCH ×3 (06:13→20:47)
[2017-08-05 07:00] VITALS: BP 158/78
[2017-08-05] MEDS: DEXTROSE 10%-WATER 1,000 ML IV SCH (07:15)
[2017-08-05] MEDS: SODIUM BICARBONATE 650 MG TAB PO SCH ×2 (08:05→20:46)
[2017-08-05] MEDS: HOME MEDICATION 1 EACH PO SCH ×3 (08:05→20:42)
[2017-08-05] MEDS: FAMOTIDINE 20MG TAB 20 MG TAB PO SCH (08:05)
[2017-08-05 11:00] VITALS: BP 160/83
[2017-08-05] MEDS ORDERED: PHARMACY COMMUNICATION MISC SCH (14:15)
[2017-08-05] MEDS ORDERED: LIDOCAINE HCL-MPF 1% 2ML VIAL IV PRN (15:15)
[2017-08-05] MEDS ORDERED: POTASSIUM CHLORIDE 10% ELIXIR 20 MEQ/15 ML UDCUP PO PRN (15:15)
[2017-08-05] MEDS ORDERED: POTASSIUM CHLORIDE 10MEQ/100ML 100 ML IV PRN (15:15)
[2017-08-05] MEDS: IRON SUCROSE COMPLEX 100 MG in SODIUM CHLORIDE 0.9% 50 ML IV SCH (15:45)
[2017-08-05 16:00] VITALS: BP 162/75
[2017-08-05] MEDS: FLUCONAZOLE 200 MG/NS 100 ML 100 ML IV SCH (17:48)
[2017-08-05] MEDS: MEROPENEM 1 GM VIAL IVP SCH (17:59)
[2017-08-05] MEDS: HYDROCODONE/ACETAMINOPHEN 5/325 MG TAB PO PRN (17:59)
[2017-08-05 20:15] VITALS: BP 165/77
[2017-08-05 23:30] VITALS: BP 150/68
[2017-08-06] MEDS: DOXYCYCLINE 100MG+NS 250ML 250 ML IV SCH ×2 (03:03→16:35)
[2017-08-06 04:24] VITALS: BP 146/66
[2017-08-06 06:02] LABS: HEMATOCRIT 24.4 % (36-48); MEAN CORPUSCULAR HEMOGLOBIN 32.2 pg (27.0-33.0); MEAN CORPUSCULAR HGB CONC 36.3 g/dL (32.0-36.0); MEAN CORPUSCULAR VOLUME 88.6 fL (79-99); NUCLEATED RED BLOOD CELLS 0.1 % (0.0-0.19); PLATELET COUNT (AUTO) 342 K/uL (130-400); RED BLOOD CELL COUNT(AUTO) 2.75 MIL/uL (4.00-5.50); RED CELL DISTRIBUTION WIDTH 15.4 % (11.0-15.5); WHITE BLOOD COUNT (AUTO) 5.1 K/uL (4.8-10.8)
[2017-08-06] MEDS: METRONIDAZOLE 500MG/100ML BAG 100 ML IV SCH ×3 (06:20→22:10)
[2017-08-06 06:31] LABS: ALBUMIN 1.9 g/dL (3.5-5.0); BILIRUBIN,DIRECT 1.1 mg/dL (0.0-0.3); BILIRUBIN,TOTAL 1.6 mg/dL (0.2-1.0); CREATININE 1.4 mg/dL (0.5-1.5); MAGNESIUM 0.8 mg/dL (1.80-2.40); PHOSPHORUS 2.9 mg/dL (2.5-4.9); POTASSIUM 3.3 mmol/L (3.5-5.1); TOTAL PROTEIN, SERUM 5.8 g/dL (6.0-8.3)
[2017-08-06 06:57] LABS: BASOPHILS % (MANUAL) 3 % (0-2); LYMPHOCYTES % (MANUAL) 38 % (22-44); MONOCYTES % (MANUAL) 5 % (2-9); SEGMENTED NEUTROPHILS % 54 % (40-70)
[2017-08-06 06:58] LABS: PLATELET MORPHOLOGY COMMENT ADEQUATE
[2017-08-06 06:59] LABS: MAN.DIFF COMMENT-IMPRESSION MANUAL DIFFERENTIAL
[2017-08-06 07:30] VITALS: BP 148/75
[2017-08-06] MEDS: HOME MEDICATION 1 EACH PO SCH ×3 (08:31→21:00)
[2017-08-06] MEDS: SODIUM BICARBONATE 650 MG TAB PO SCH ×2 (08:33→21:07)
[2017-08-06] MEDS: ACETAMINOPHEN 325 MG TAB PO PRN (08:33)
[2017-08-06] MEDS: IRON SUCROSE COMPLEX 100 MG in SODIUM CHLORIDE 0.9% 50 ML IV SCH (08:33)
[2017-08-06] MEDS: FAMOTIDINE 20MG TAB 20 MG TAB PO SCH (08:33)
[2017-08-06] MEDS: MAGNESIUM 2GM PREMIX 50ML 50 ML IV PRN ×2 (08:34→16:34)
[2017-08-06 11:00] VITALS: BP 179/74
[2017-08-06] MEDS ORDERED: ALTEPLASE 2 MG/2 ML IVCATH SCH (14:45)
[2017-08-06 16:00] VITALS: BP 179/90
[2017-08-06] MEDS ORDERED: ONDANSETRON HCL 4 MG/2 ML VIAL ONE (17:25)
[2017-08-06] MEDS: HYDROCODONE/ACETAMINOPHEN 5/325 MG TAB PO PRN (17:33)
[2017-08-06] MEDS: MEROPENEM 1 GM VIAL IVP SCH (18:35)
[2017-08-06] MEDS: FLUCONAZOLE 200 MG/NS 100 ML 100 ML IV SCH (18:35)
[2017-08-06 20:08] VITALS: BP 154/79
[2017-08-06 23:51] VITALS: BP 175/77
[2017-08-07] MEDS: HYDROCODONE/ACETAMINOPHEN 5/325 MG TAB PO PRN ×3 (00:15→23:25)
[2017-08-07] MEDS: HYDRALAZINE HCL 20 MG/ML VIAL IV PRN ×2 (00:16→15:03)
[2017-08-07 03:30] VITALS: BP 152/71
[2017-08-07] MEDS: DOXYCYCLINE 100MG+NS 250ML 250 ML IV SCH ×2 (04:50→15:45)
[2017-08-07 05:40] LABS: MEAN CORPUSCULAR HEMOGLOBIN 31.8 pg (27.0-33.0); MEAN CORPUSCULAR HGB CONC 36.2 g/dL (32.0-36.0); MEAN CORPUSCULAR VOLUME 87.9 fL (79-99); PLATELET COUNT (AUTO) 375 K/uL (130-400); RED BLOOD CELL COUNT(AUTO) 2.73 MIL/uL (4.00-5.50); RED CELL DISTRIBUTION WIDTH 15.4 % (11.0-15.5); WHITE BLOOD COUNT (AUTO) 4.7 K/uL (4.8-10.8)
[2017-08-07 05:49] LABS: LYMPHOCYTES % (MANUAL) 60 % (22-44); MONOCYTES % (MANUAL) 4 % (2-9); SEGMENTED NEUTROPHILS % 36 % (40-70)
[2017-08-07 05:50] LABS: MAN.DIFF COMMENT-IMPRESSION MANUAL DIFFERENTIAL; PLATELET MORPHOLOGY COMMENT ADEQUATE
[2017-08-07 05:51] LABS: CREATININE 1.1 mg/dL (0.5-1.5); MAGNESIUM 1.4 mg/dL (1.80-2.40)
[2017-08-07 05:54] LABS: POTASSIUM 2.7 mmol/L (3.5-5.1)
[2017-08-07] MEDS: POTASSIUM CHLORIDE 10 MEQ/TAB.SR PO PRN (06:55)
[2017-08-07 07:30] VITALS: BP 156/74
[2017-08-07] MEDS: METRONIDAZOLE 500MG/100ML BAG 100 ML IV SCH ×2 (08:31→14:05)
[2017-08-07] MEDS: HOME MEDICATION 1 EACH PO SCH ×3 (09:00→20:10)
[2017-08-07] MEDS: IRON SUCROSE COMPLEX 100 MG in SODIUM CHLORIDE 0.9% 50 ML IV SCH (10:23)
[2017-08-07] MEDS: POTASSIUM CHLORIDE 20MEQ/100ML 100 ML IV PRN ×2 (10:32→14:56)
[2017-08-07 11:00] VITALS: BP 180/78
[2017-08-07] MEDS ORDERED: SINCALIDE 5 MCG ML VIAL IV ONE (12:25)
[2017-08-07] MEDS: POTASSIUM CHLORIDE 20 MEQ ERTAB PO PRN ×2 (14:05→15:45)
[2017-08-07] MEDS: FAMOTIDINE 20MG TAB 20 MG TAB PO SCH (15:46)
[2017-08-07 16:00] VITALS: BP 119/89
[2017-08-07] MEDS: MAGNESIUM 2GM PREMIX 50ML 50 ML IV PRN (16:41)
[2017-08-07] MEDS: MEROPENEM 1 GM VIAL IVP SCH (18:25)
[2017-08-07 19:00] VITALS: BP 161/77
[2017-08-07 23:57] VITALS: BP 157/82
[2017-08-08] MEDS: DOXYCYCLINE 100MG+NS 250ML 250 ML IV SCH ×2 (03:14→16:52)
[2017-08-08 04:00] VITALS: BP 153/72
[2017-08-08] MEDS: POTASSIUM CHLORIDE 10 MEQ/TAB.SR PO PRN (05:28)
[2017-08-08 06:16] LABS: HEMATOCRIT 25.1 % (36-48); MEAN CORPUSCULAR HEMOGLOBIN 33.3 pg (27.0-33.0); MEAN CORPUSCULAR HGB CONC 37.4 g/dL (32.0-36.0); MEAN CORPUSCULAR VOLUME 89.1 fL (79-99); NUCLEATED RED BLOOD CELLS 0.1 % (0.0-0.19); PLATELET COUNT (AUTO) 391 K/uL (130-400); RED BLOOD CELL COUNT(AUTO) 2.82 MIL/uL (4.00-5.50); RED CELL DISTRIBUTION WIDTH 15.8 % (11.0-15.5); WHITE BLOOD COUNT (AUTO) 4.8 K/uL (4.8-10.8)
[2017-08-08 06:50] LABS: ALBUMIN 2.2 g/dL (3.5-5.0); BILIRUBIN,TOTAL 1.4 mg/dL (0.2-1.0); POTASSIUM 3.4 mmol/L (3.5-5.1); TOTAL PROTEIN, SERUM 6.2 g/dL (6.0-8.3)
[2017-08-08 08:23] VITALS: BP 166/78
[2017-08-08] MEDS: FAMOTIDINE 20MG TAB 20 MG TAB PO SCH (08:26)
[2017-08-08] MEDS: IRON SUCROSE COMPLEX 100 MG in SODIUM CHLORIDE 0.9% 50 ML IV SCH (08:43)
[2017-08-08] MEDS: HYDROCODONE/ACETAMINOPHEN 5/325 MG TAB PO PRN ×2 (08:55→23:21)
[2017-08-08] MEDS: HOME MEDICATION 1 EACH PO SCH ×3 (08:56→21:00)
[2017-08-08 11:45] VITALS: BP 137/79
[2017-08-08 15:55] VITALS: BP 163/75
[2017-08-08] MEDS: MEROPENEM 1 GM VIAL IVP SCH (16:52)
[2017-08-08 20:00] VITALS: BP 176/76
[2017-08-08] MEDS: HYDRALAZINE HCL 20 MG/ML VIAL IV PRN (21:11)
[2017-08-08 23:57] VITALS: BP 160/71
[2017-08-09 04:00] VITALS: BP 158/72
[2017-08-09] MEDS: DOXYCYCLINE 100MG+NS 250ML 250 ML IV SCH (04:59)
[2017-08-09 05:43] LABS: HEMATOCRIT 23.8 % (36-48); MEAN CORPUSCULAR HEMOGLOBIN 31.4 pg (27.0-33.0); MEAN CORPUSCULAR HGB CONC 35.4 g/dL (32.0-36.0); MEAN CORPUSCULAR VOLUME 88.7 fL (79-99); NUCLEATED RED BLOOD CELLS 0.1 % (0.0-0.19); PARTIAL THROMBOPLASTIN TIME 26.4 SEC (26.3-35.5); PLATELET COUNT (AUTO) 365 K/uL (130-400); PROTHROMBIN TIME 10.5 SEC (9.6-11.6); RED BLOOD CELL COUNT(AUTO) 2.69 MIL/uL (4.00-5.50); RED CELL DISTRIBUTION WIDTH 16.1 % (11.0-15.5); WHITE BLOOD COUNT (AUTO) 4.9 K/uL (4.8-10.8)
[2017-08-09 06:24] LABS: ALBUMIN 2.1 g/dL (3.5-5.0); BILIRUBIN,TOTAL 1.2 mg/dL (0.2-1.0); CREATININE 1.1 mg/dL (0.5-1.5); PHOSPHORUS 2.3 mg/dL (2.5-4.9); POTASSIUM 3.2 mmol/L (3.5-5.1); TOTAL PROTEIN, SERUM 5.7 g/dL (6.0-8.3)
[2017-08-09] MEDS: POTASSIUM CHLORIDE 10 MEQ/TAB.SR PO PRN ×3 (06:29→13:49)
[2017-08-09 08:17] VITALS: BP 156/71
[2017-08-09] MEDS: HOME MEDICATION 1 EACH PO SCH ×2 (09:00→11:29)
[2017-08-09] MEDS: FAMOTIDINE 20MG TAB 20 MG TAB PO SCH (09:12)
[2017-08-09 11:37] VITALS: BP 154/74
[2017-08-09 16:06] VITALS: BP 170/96
[2017-08-09 16:17] VITALS: BP 157/70
== END 2017-08-09 18:45 | disposition home or self-care (01) | DRG 871 ==
LOC: EDH 16:39 → EDHIP 20:37 → 4BH 23:00 → 4CH 07-24 18:38 → 2DH 07-25 14:03 → 2CH 07-26 09:56 → 2BH 07-30 16:33 → 3DH 08-01 11:00
PROVIDERS: ADMIT Family Medicine; ATTEND Family Medicine
PROC: 5A09457 Assistance with Respiratory Ventilation, 24-96 Consecutive Hours, Continuous Positive Airway Pressure (ICD-10-PCS; 2017-07-26)
PROC: 02H633Z Insertion of Infusion Device into Right Atrium, Percutaneous Approach (ICD-10-PCS; 2017-07-26)
PROC: 05HY33Z Insertion of Infusion Device into Upper Vein, Percutaneous Approach (ICD-10-PCS; principal; 2017-07-27)
PROC: 30233N1 Transfusion of Nonautologous Red Blood Cells into Peripheral Vein, Percutaneous Approach (ICD-10-PCS; 2017-07-27)
PROC: 5A1D70Z Performance of Urinary Filtration, Intermittent, Less than 6 Hours Per Day (ICD-10-PCS; 2017-07-27)
PROC: 5A1D70Z Performance of Urinary Filtration, Intermittent, Less than 6 Hours Per Day (ICD-10-PCS; 2017-07-28)
PROC: 5A1D70Z Performance of Urinary Filtration, Intermittent, Less than 6 Hours Per Day (ICD-10-PCS; 2017-07-29)
PROC: 5A09357 Assistance with Respiratory Ventilation, Less than 24 Consecutive Hours, Continuous Positive Airway Pressure (ICD-10-PCS; 2017-07-30)
DX: A41.9 Sepsis, unspecified organism (principal); J18.9 Pneumonia, unspecified organism; N17.0 Acute kidney failure with tubular necrosis; R65.21 Severe sepsis with septic shock; J96.01 Acute respiratory failure with hypoxia; D65 Disseminated intravascular coagulation [defibrination syndrome]; N18.6 End stage renal disease; G92 Toxic encephalopathy; E43 Unspecified severe protein-calorie malnutrition; E87.2 Acidosis; I12.0 Hypertensive chronic kidney disease with stage 5 chronic kidney disease or end stage renal disease; B49 Unspecified mycosis; K80.10 Calculus of gallbladder with chronic cholecystitis without obstruction; A79.9 Rickettsiosis, unspecified; A75.9 Typhus fever, unspecified; B17.9 Acute viral hepatitis, unspecified; J91.8 Pleural effusion in other conditions classified elsewhere; N30.00 Acute cystitis without hematuria; E87.70 Fluid overload, unspecified; L40.9 Psoriasis, unspecified; K82.8 Other specified diseases of gallbladder; D63.8 Anemia in other chronic diseases classified elsewhere; E03.9 Hypothyroidism, unspecified; E16.2 Hypoglycemia, unspecified; E66.9 Obesity, unspecified; E78.00 Pure hypercholesterolemia, unspecified; E78.5 Hyperlipidemia, unspecified; E83.42 Hypomagnesemia; E87.6 Hypokalemia; R74.0 Nonspecific elevation of levels of transaminase and lactic acid dehydrogenase [LDH]; I48.0 Paroxysmal atrial fibrillation; I95.89 Other hypotension; K27.9 Peptic ulcer, site unspecified, unspecified as acute or chronic, without hemorrhage or perforation; Z53.20 Procedure and treatment not carried out because of patient's decision for unspecified reasons; Z99.2 Dependence on renal dialysis; Z86.2 Personal history of diseases of the blood and blood-forming organs and certain disorders involving the immune mechanism; Z87.891 Personal history of nicotine dependence; Z68.28 Body mass index [BMI] 28.0-28.9, adult; Z74.01 Bed confinement status; Z91.19 Patient's noncompliance with other medical treatment and regimen; Z82.49 Family history of ischemic heart disease and other diseases of the circulatory system
CPT/HCPCS: 36415; 36430; 36556; 36600; 70450; 70544; 71045; 71046; 74018; 74176; 74230; 76604; 76705; 78227; 78580; 80048; 80053; 80061; 80074; 80076; 81001; 82140; 82150; 82270; 82533; 82570; 82803; 82947; 82948; 83540; 83550; 83605; 83690; 83735; 83880; 84100; 84132; 84156; 84165; 84439; 84443; 84481; 85025; 85027; 85045; 85060; 85378; 85384; 85610; 85730; 86022; 86160; 86255; 86757; 86850; 86900; 86901; 86922; 87040; 87088; 90935; 92526; 92610; 92611; 93005; 93306; 94660; 97039; A4218; A4344; A4357; A9537; A9540; C1752; C1894; C9113; J0360; J0692; J0696; J1170; J1450; J1630; J1644; J1650; J1720; J1756; J1940; J1956; J2060; J2185; J2270; J2405; J2805; J2997; J3475; J3480; J3490; J7030; J7040; J7042; J7070; P9016

== ENCOUNTER → 2022-12-22 | Outpatient (CLI) | payer OTHER ==
[~2022-12-22] MED LIST: IBUP-2070 PO; LEVO75TA10 PO; LIOT50TA6 PO; MELOXICAM PO; RANI150T7 PO; [UNRECOGNIZED DRUG - CODE] PO; [UNRECOGNIZED DRUG - OTHER]; [UNRECOGNIZED DRUG - OTHER] PO
== END | disposition home or self-care (01) ==
LOC: RAH 12:41
PROVIDERS: ATTEND Dermatology
DX: M19.042 Primary osteoarthritis, left hand (principal); D49.9 Neoplasm of unspecified behavior of unspecified site; Q70 Syndactyly
CPT/HCPCS: 73140

== ENCOUNTER → 2024-08-21 | Outpatient (CLI) | payer OTHER ==
--- NOTE | 2024-08-21 20:13 | HMCIMG ---
EXAM: CR right Knee, 3 View. CLINICAL HISTORY: Pain in rt knee COMPARISON: None provided. FINDINGS: Medial compartment predominant mild tricompartmental right knee joint osteoarthritis. There is no displaced fracture or evidence of periostitis. Small suprapatellar knee joint effusion. Small enthesophyte at the distal quadriceps tendon insertion. IMPRESSION: 1. No acute osseous injury. 2. Mild tricompartmental osteoarthritis, most pronounced in the medial compartment, with small suprapatellar joint effusion. /Murray
== END | disposition home or self-care (01) ==
LOC: RAH 08:05
PROVIDERS: ATTEND Family Medicine
DX: M17.11 Unilateral primary osteoarthritis, right knee (principal); M25.461 Effusion, right knee; M76.9 Unspecified enthesopathy, lower limb, excluding foot; M25.561 Pain in right knee
CPT/HCPCS: 73562

== ENCOUNTER → 2024-11-07 | Outpatient (CLI) | payer OTHER ==
[~2024-11-07] MED LIST changes: +IBUP-1492 PO; -IBUP-2070 PO
== END | disposition home or self-care (01) ==
LOC: RAH 08:14
PROVIDERS: ATTEND Family Medicine
DX: Z12.31 Encounter for screening mammogram for malignant neoplasm of breast (principal)
CPT/HCPCS: 77067